=== PATIENT | female | born 1970 | race Caucasian/White ===

== ENCOUNTER → 2019-04-21 18:29 | Outpatient (CLI) | payer BC ==
[2019-04-21 19:28] LABS: ALBUMIN 3.8 g/dL (3.4-5.0); BILIRUBIN - DIRECT 0.13 mg/dL (0.00-0.30); BILIRUBIN - INDIRECT 0.38 mg/dL (0.00-1.00); BILIRUBIN - TOTAL 0.51 mg/dL (0.2-1.3); PROTEIN - SERUM 7.2 g/dL (6.4-8.2)
[2019-04-24 06:12] LABS: IGG SUBCLASS 1 550 mg/dL (248-810); IGG SUBCLASS 2 227 mg/dL (130-555); IGG SUBCLASS 3 21 mg/dL (15-102); IGG SUBCLASS 4 23 mg/dL (2-96)
== END | disposition home or self-care (01) ==
LOC: D.LAB 18:29
PROVIDERS: ATTEND Internal Medicine Gastroenterology
DX: K85.90 Acute pancreatitis without necrosis or infection, unspecified (principal); R10.13 Epigastric pain; R94.5 Abnormal results of liver function studies; R74.8 Abnormal levels of other serum enzymes

== ENCOUNTER → 2019-06-10 10:21 | Outpatient (CLI) | payer BC | END | disposition home or self-care (01) | LOC: D.LAB 10:21 | PROVIDERS: ATTEND Internal Medicine Gastroenterology | DX: K85.90 Acute pancreatitis without necrosis or infection, unspecified (principal); K92.1 Melena ==